=== PATIENT | male | born 1970 | race Caucasian/White ===

== ENCOUNTER 2024-02-13 14:14 | Emergency (ER) | payer OTHER ==
[~2024-02-13] VITALS: Ht 190.5 cm; Wt 132.3 kg
[2024-02-13] MEDS ORDERED: AMOXICILLIN/CLAVULANATE K 875 MG TAB PO ONE (15:00)
[2024-02-13] MEDS ORDERED: AMOX TR-K CLV1 EAC1 PO (15:20)
[2024-02-13] MEDS ORDERED: OLMSRTN-AMLDPN1 EACH PO (15:30)
[2024-02-13] MEDS ORDERED: ATENOLOL25 MG PO (15:30)
[2024-02-13] MEDS ORDERED: LIPITOR10 MG PO (15:30)
[2024-02-13] MEDS ORDERED: ALDACTONE25 MG PO (15:30)
[2024-02-13 15:31] VITALS: BP 138/81
[2024-02-13] MEDS ORDERED: LEVOTHYROXINE25 MC1 PO (15:31)
[2024-02-13] MEDS ORDERED: ASPIRIN81 MG PO (15:31)
== END 2024-02-13 15:33 | disposition home or self-care (01) ==
LOC: ED 14:14
DX: K04.7 Periapical abscess without sinus (principal); K02.9 Dental caries, unspecified
CPT/HCPCS: 99282

== ENCOUNTER 2024-03-17 07:53 | Emergency (ER) | payer OTHER ==
[~2024-03-17] VITALS: Ht 190.5 cm; Wt 132.0 kg
[~2024-03-17 07:53] MED LIST: ALDACTONE25 MG PO; AMOX TR-K CLV1 EAC1 PO; ASPIRIN81 MG PO; ATENOLOL25 MG PO; LEVOTHYROXINE25 MC1 PO; LIPITOR10 MG PO; OLMSRTN-AMLDPN1 EACH PO
[2024-03-17] MEDS ORDERED: CEPHALEXIN500 M1 PO (08:19)
[2024-03-17] MEDS ORDERED: NAPROSYN500 MG PO (08:19)
[2024-03-17 08:23] VITALS: BP 147/90
== END 2024-03-17 08:24 | disposition home or self-care (01) ==
LOC: ED 07:53
DX: K08.89 Other specified disorders of teeth and supporting structures (principal); I10 Essential (primary) hypertension; E03.9 Hypothyroidism, unspecified; Z95.5 Presence of coronary angioplasty implant and graft; Z79.82 Long term (current) use of aspirin; Z79.890 Hormone replacement therapy; Z79.899 Other long term (current) drug therapy
CPT/HCPCS: 99282

== ENCOUNTER 2024-04-30 16:26 | Emergency (ER) | payer BC ==
[~2024-04-30] VITALS: Ht 190.5 cm; Wt 133.4 kg
[~2024-04-30 16:26] MED LIST changes: +CEPHALEXIN500 M1 PO; +NAPROSYN500 MG PO
[2024-04-30 16:55] LABS: BASOPHILS 0.6 % (0-2); EOSINOPHILS 4.4 % (0-6); HEMATOCRIT 43.2 % (35.0-50.0); LYMPHOCYTES 26.9 % (24-44); MCH 31.7 (27-36); MCHC 34.8 g/dl (30-36); MCV 91.1 fl (81-99); MONOCYTES 7.2 % (0-12); NEUTROPHILS 60.9 % (39-80); PLATELET COUNT 130 K/uL (140-440); RBC 4.74 M/ul (4.3-5.7); RDW 13.4 (10.5-15.0)
[2024-04-30] MEDS ORDERED: METOPROLOL SUCC25 MG PO (16:59)
[2024-04-30 17:15] LABS: ALBUMIN 3.4 g/dL (3.4-5.0); ALBUMIN/GLOBULIN RATIO 1.26 (1.1-2.4); ANION GAP 10.9 (7-21); BILIRUBIN, TOTAL 1.3 ng/dL (0.2-1.0); BUN/CREATININE RATIO 17.39 (6.0-28.6); CREATININE, SERUM 0.92 mg/dL (0.70-1.30); POTASSIUM 3.9 mmol/L (3.5-5.1); PROTEIN, TOTAL 6.1 g/dL (6.4-8.2)
[2024-04-30 18:04] VITALS: BP 142/90
--- NOTE | 2024-05-01 21:52 | EKG ---
[facility] [address] [facility] [place], [place] [address] Signed Sinus bradycardia Otherwise normal ECG No previous ECGs available Confirmed by Javid Garnett DO ([id number]) on 05/01/2024 9:52:31 PM Electronically Signed By: JAVID GARNETT DO [id number] PATIENT NAME: JAMI DELACRUZ IV Electrocardiogram DATE OF : 66 PHYSICIAN: JAVID GARNETT DO REPORT #: [id number] REPORT IS CONFIDENTIAL AND NOT TO BE RELEASED WITHOUT AUTHORIZATION
== END 2024-04-30 18:00 | disposition home or self-care (01) ==
LOC: ED 16:26
PROVIDERS: Emergency Medicine
DX: R55 Syncope and collapse (principal); R42 Dizziness and giddiness; R00.1 Bradycardia, unspecified; T44.7X5A Adverse effect of beta-adrenoreceptor antagonists, initial encounter; I10 Essential (primary) hypertension; E03.9 Hypothyroidism, unspecified; Z95.5 Presence of coronary angioplasty implant and graft; Z98.84 Bariatric surgery status; Z79.82 Long term (current) use of aspirin; Z79.890 Hormone replacement therapy; Z79.899 Other long term (current) drug therapy
CPT/HCPCS: 36415; 80053; 83735; 84484; 85025; 93005; 93010; 99284

== ENCOUNTER 2024-05-10 09:57 | Emergency (ER) | payer BC ==
[~2024-05-10] VITALS: Ht 190.5 cm; Wt 132.0 kg
[2024-05-10] MEDS ORDERED: NITROGLYCERIN 0.4 MG SUBL SL PRN (10:00)
[2024-05-10] MEDS ORDERED: ASPIRIN 81 MG CHEW PO ONE (10:15)
[2024-05-10 10:24] LABS: BASOPHILS 0.6 % (0-2); HEMOGLOBIN 15.5 g/dL (12.0-18.0); LYMPHOCYTES 34.5 % (24-44); MCH 31.6 (27-36); MCHC 34.4 g/dl (30-36); MCV 91.8 fl (81-99); MONOCYTES 8.6 % (0-12); NEUTROPHILS 51.3 % (39-80); PLATELET COUNT 117 K/uL (140-440); RDW 13.7 (10.5-15.0)
[2024-05-10 10:39] LABS: ALBUMIN 3.4 g/dL (3.4-5.0); ALBUMIN/GLOBULIN RATIO 1.17 (1.1-2.4); BILIRUBIN, TOTAL 1.7 ng/dL (0.2-1.0); BUN/CREATININE RATIO 17.24 (6.0-28.6); CREATININE, SERUM 0.87 mg/dL (0.70-1.30); MAGNESIUM 1.9 mg/dL (1.8-2.4); PROTEIN, TOTAL 6.3 g/dL (6.4-8.2)
[2024-05-10 12:45] VITALS: BP 137/99
== END 2024-05-10 12:45 | disposition home or self-care (01) ==
LOC: ED 09:57
PROVIDERS: Emergency Medicine
DX: I10 Essential (primary) hypertension (principal); E03.9 Hypothyroidism, unspecified; Z95.5 Presence of coronary angioplasty implant and graft; Z79.890 Hormone replacement therapy; Z79.82 Long term (current) use of aspirin; Z79.899 Other long term (current) drug therapy
CPT/HCPCS: 36415; 71045; 80053; 83735; 84484; 85025; 93005; 93010; 99285-25; A9270